=== PATIENT | male | born 1995 | race Two or more races ===

== ENCOUNTER 2020-07-11 10:41 | Emergency (ER) | payer BC, OTHER ==
[~2020-07-11] VITALS: Ht 172.7 cm; Wt 70.0 kg
[~2020-07-11 10:41] MED LIST: HYDR-4383 PO; NAPR-1166 PO
[2020-07-11 10:58] VITALS: BP 108/61
== END 2020-07-11 11:23 | disposition home or self-care (01) ==
LOC: ER 10:42
DX: B34.9 Viral infection, unspecified (principal); J02.9 Acute pharyngitis, unspecified; Z20.828 Contact with and (suspected) exposure to other viral communicable diseases; Z79.899 Other long term (current) drug therapy
CPT/HCPCS: 36415; 87635; 99283